=== PATIENT | female | born 1955 | race Caucasian/White ===

== ENCOUNTER 2024-01-04 16:30 | Emergency (ER) | payer BC, OTHER ==
[2024-01-04 17:03] VITALS: BP 139/82; PULSE 78; RESP 18; TEMP 98.2; BMI 27.8
[2024-01-04] MEDS ORDERED: ACETAMINOPHEN 500 MG TABLET (FP) ONE (18:10)
[2024-01-04] MEDS: ACETAMINOPHEN 500 MG TABLET (FP) PO ONE (18:12)
== END 2024-01-04 19:04 | disposition home or self-care (01) ==
LOC: FER 16:30
PROC: 2W38X1Z Immobilization of Right Upper Extremity using Splint (ICD-10-PCS; principal; 2024-01-04)
DX: S52.91XA Unspecified fracture of right forearm, initial encounter for closed fracture (principal); W01.0XXA Fall on same level from slipping, tripping and stumbling without subsequent striking against object, initial encounter
CPT/HCPCS: 73070-TC-RT-FY; 73090-TC-RT-FY; 73110-TC-RT-FY; 73130-TC-RT-FY; 99283-25